=== PATIENT | male | born 1960 | race American Indian/Alaskan Native ===

== ENCOUNTER 2019-08-10 07:30 | Outpatient (CLI) | payer OTHER ==
--- NOTE | 2019-08-10 10:12 | Cat Scan Report ---
CT ABDOMEN AND PELVIS WITHOUT CONTRAST HISTORY: MALIGNANT NEOPLASM OF PROSTATE. COMPARISON: 06/10/2010. TECHNIQUE: CT images of the abdomen and pelvis were obtained without administration of intravenous co ntrast. All CT scans at this location are performed using CT dose reduction for ALARA by means of au tomated exposure control. FINDINGS: Limited evaluation of the lung bases demonstrates multiple ill-defined densities within the lower melisa gs bilaterally. These measure up to 2.1 cm in the lateral right lung base and 1.9 cm in the left ling merritt. Additionally, there is a 1.8 cm posterior medial right lower lobe. It is unclear if these repres ent areas of focal consolidation or soft tissue masses. They are primarily subpleural in location. The liver demonstrates diffuse hypodense appearance consistent with steatosis. The prostate measures up to 3.9 cm in transverse dimension and there are coarse-appearing calcificati ons located centrally. Fairly smooth contour of the seminal vesicles. Shotty retroperitoneal lymph nodes without evidence of pathologically enlarged lymph nodes. No free i ntraperitoneal gas or fluid. The spleen, pancreas, adrenal glands, gallbladder, and kidneys are unremarkable. Gastrointestinal tra ct shows no evidence of focal bowel wall thickening or pathologic distention. Scattered colonic diver ticulosis throughout without evidence of diverticulitis. No free intraperitoneal gas or fluid. Extens tequila vascular calcifications throughout the distal abdominal aorta and its major branch vessels, parti cularly within the pelvis. The appendix is visualized and is normal in appearance. Urinary bladder is unremarkable. There is a 1.5 x 0.7 cm well-defined lucent lesion within the right iliac bone, although the appearan ce is not typical of a prostate metastasis. No acute fracture or aggressive osseous destructive lesio n. The lack of intravenous and oral contrast limits evaluation of solid parenchymal organs, vasculature, and gastrointestinal tract. IMPRESSION: Multiple ill-defined densities are noted within the bilateral lung bases. Largest of these measures u p to 2.1 cm in lateral right lung base. It is unclear if these represent areas of focal consolidation or soft tissue masses. A dedicated CT of the chest is recommended to assess for the presence of luis a tional findings not included on this exam. No pathologically enlarged lymph nodes. There is a solitary well-defined lucent lesion within the right iliac bone. The appearance is not typ ical for prostate metastasis. Although it is indeterminate on this exam, a bone cyst is suspected. If prior outside imaging is available, comparison would be beneficial to assess stability. Signer Name: Darwin Houston MD Signed: 08/10/2019 10:07 AM Workstation Name: [id number]
== END 2019-08-10 07:31 | disposition home or self-care (01) ==
LOC: CT 07:30
PROVIDERS: ATTEND Urology
DX: I70.0 Atherosclerosis of aorta (principal); C61 Malignant neoplasm of prostate; K57.30 Diverticulosis of large intestine without perforation or abscess without bleeding; M89.9 Disorder of bone, unspecified
CPT/HCPCS: 74176

== ENCOUNTER 2019-08-15 07:07 | Outpatient (CLI) | payer OTHER ==
--- NOTE | 2019-08-15 11:50 | Nuclear Medicine Report ---
NUCLEAR MEDICINE BONE SCAN, WHOLE BODY INDICATION: [id number] neoplasm of prostate. TECHNIQUE: 26 mCi of Tc-99m MDP were injected IV. Whole body images were obtained. COMPARISON: CT abdomen and pelvis without contrast from 08/10/2019. FINDINGS: Articular Structures: Mild uptake along the right knee and feet is consistent with degenerative vazquez e. Skeletal Lesions: None. Soft Tissues: Normal. Kidneys: Normal. Additional Findings: None. IMPRESSION: 1. No significant scintigraphic abnormality. 2. Degenerative changes as above. Signer Name: Yonatan Jones MD Signed: 08/15/2019 11:46 AM Workstation Name: [id number]
== END 2019-08-15 07:08 | disposition home or self-care (01) ==
LOC: NM 07:07
PROVIDERS: ATTEND Urology
DX: M17.11 Unilateral primary osteoarthritis, right knee (principal); C61 Malignant neoplasm of prostate
CPT/HCPCS: 78306; A9503